=== PATIENT | male | born 1950 | race Two or more races ===

== ENCOUNTER → 2022-07-11 | Outpatient (CLI) | payer OTHER ==
[2022-07-11 09:58] LABS: Basophils # (auto) 0.2 10 ^3/uL (0-0.2); Basophils % (auto) 1.8 % (0.0-2.0); Eosinophils # (auto) 0.4 10 ^3/uL (0-0.8); Eosinophils % (auto) 4.3 % (0.0-7.0); Hematocrit 47.6 % (41.0-53.0); Hemoglobin 16.2 g/dL (13.5-17.5); Lymphocytes % (auto) 29.1 % (10.0-50.0); Mean Corpuscular Volume 94.1 fL (80.0-100.0); Monocytes # (auto) 1.1 10 ^3/uL (0-1.3); Monocytes % (auto) 10.6 % (0.0-12.0); Neutrophils # (auto) 5.6 10 ^3/uL (1.6-8.6); Neutrophils % (auto) 54.2 % (37.0-80.0); Nucleated Red Blood Cells % 0.1 %; Red Blood Cells 5.05 10^6/uL (4.5-5.90); Red Cell Distribution Width 13.3 % (11.8-14.3); White Blood Cell 10.4 10^3/uL (4.4-10.8)
[2022-07-11 10:23] LABS: Urine Bacteria NONE SEEN /hpf (None Seen); Urine Blood Negative /uL (Negative); Urine WBC <1 /hpf (0 - 3)
[2022-07-11 13:35] LABS: Potassium 4.1 mmol/L (3.5-5.1)
[2022-07-11 14:16] LABS: Albumin 3.5 g/dL (3.4-5.0); BUN/Creatinine Ratio 14.1 (10.0-20.0); Bilirubin, Total 0.4 mg/dL (0.2-1.0); Calcium 9.4 mg/dL (8.5-10.1); Magnesium 2.3 mg/dL (1.6-2.6); Uric Acid 4.4 mg/dL (3.5-7.2)
== END | disposition home or self-care (01) ==
LOC: LAB 09:26
PROVIDERS: ATTEND Nurse Practitioner Family
DX: I10 Essential (primary) hypertension (principal); E11.69 Type 2 diabetes mellitus with other specified complication; E78.5 Hyperlipidemia, unspecified; M47.16 Other spondylosis with myelopathy, lumbar region; G89.29 Other chronic pain; M54.51 Vertebrogenic low back pain; J44.9 Chronic obstructive pulmonary disease, unspecified; M50.30 Other cervical disc degeneration, unspecified cervical region; M79.604 Pain in right leg; M79.605 Pain in left leg
CPT/HCPCS: 36415; 80053; 80061; 81001; 82306; 82607; 83036; 83735; 84443; 84550; 85025; 87086

== ENCOUNTER → 2023-01-18 | Outpatient (CLI) | payer OTHER ==
[2023-01-18 08:20] LABS: Urine WBC None Seen /hpf (0 - 3)
[2023-01-18 08:47] LABS: Urine Bacteria NONE SEEN /hpf (None Seen); Urine Blood Negative /uL (Negative); Urine Clarity Clear (Clear); Urine Color Straw (Yellow); Urine Protein, UAD Negative (Negative); Urine Specific Gravity 1.008 (1.001-1.035); Urine Urobilinogen Normal (Negative); Urine pH 7.5 (5.0-8.0)
[2023-01-18 09:01] LABS: Alanine Aminotransferase 27 U/L (7-40); Albumin 4.7 g/dL (3.2-4.8); Alkaline Phosphatase 80 U/L (46-116); Anion Gap 4 (5-15); Aspartate Aminotransferase 16 U/L (13-40); BUN/Creatinine Ratio 8.8 (10.0-20.0); Bilirubin, Total 0.4 mg/dL (0.2-1.0); Blood Urea Nitrogen 8 mg/dL (9-23); Calcium 9.8 mg/dL (8.5-10.1); Carbon Dioxide 28 mmol/L (20-30); Chloride 105 mmol/L (98-107); Cholesterol 161 mg/dL (< 200); Glucose 142 mg/dL (74-106); HDL Cholesterol 44 mg/dL (40-59); LDL Cholesterol 99 mg/dL (< 100); Potassium 4.3 mmol/L (3.5-5.1); Sodium 137 mmol/L (136-145); Total Protein 7.9 g/dL (5.7-8.2); Triglycerides 154 mg/dL (< 150)
[2023-01-18 09:05] LABS: Folate (Folic Acid) 15.28 ng/mL (>5.38)
[2023-01-18 09:30] LABS: Uric Acid 5.5 mg/dL (3.7-9.2)
== END | disposition home or self-care (01) ==
LOC: LAB 07:59
PROVIDERS: ATTEND Internal Medicine
DX: E61.2 Magnesium deficiency (principal); E79.0 Hyperuricemia without signs of inflammatory arthritis and tophaceous disease; R82.998 Other abnormal findings in urine; R94.6 Abnormal results of thyroid function studies; E55.9 Vitamin D deficiency, unspecified; R82.79 Other abnormal findings on microbiological examination of urine; D51.9 Vitamin B12 deficiency anemia, unspecified; R68.89 Other general symptoms and signs; E78.49 Other hyperlipidemia; R73.09 Other abnormal glucose
CPT/HCPCS: 36415; 80053; 80061; 81001; 82306; 82607; 82746; 83036; 83735; 84443; 84550; 87086

== ENCOUNTER → 2023-04-18 | Outpatient (CLI) | payer OTHER ==
[2023-04-18 09:01] LABS: Urine Epithelial Cast None Seen /hpf (<5)
[2023-04-18 09:14] LABS: Basophils # (auto) 0.1 10 ^3/uL (0-0.2); Basophils % (auto) 1.1 % (0.0-2.0); Eosinophils # (auto) 0.3 10 ^3/uL (0-0.8); Eosinophils % (auto) 2.5 % (0.0-7.0); Hematocrit 48.7 % (41.0-53.0); Hemoglobin 15.9 g/dL (13.5-17.5); Lymphocytes # (auto) 3.6 10 ^3/uL (0.4-5.4); Lymphocytes % (auto) 31.5 % (10.0-50.0); Mean Corpuscular Hemoglobin 32.1 pg (28.0-32.0); Mean Corpuscular Hgb Conc. 32.8 g/dL (32.0-36.0); Mean Corpuscular Volume 98.1 fL (80.0-100.0); Monocytes # (auto) 0.9 10 ^3/uL (0-1.3); Monocytes % (auto) 8.1 % (0.0-12.0); Neutrophils # (auto) 6.5 10 ^3/uL (1.6-8.6); Neutrophils % (auto) 56.8 % (37.0-80.0); Nucleated Red Blood Cells % 0.1 %; Red Blood Cells 4.96 10^6/uL (4.5-5.90); Red Cell Distribution Width 13.2 % (11.8-14.3); White Blood Cell 11.5 10^3/uL (4.4-10.8)
[2023-04-18 09:37] LABS: Urine Bacteria NONE SEEN /hpf (None Seen); Urine Blood Negative /uL (Negative); Urine Clarity Clear (Clear); Urine Color Yellow (Yellow); Urine Mucus FEW (None Seen); Urine Protein, UAD Negative (Negative); Urine Specific Gravity 1.017 (1.001-1.035); Urine Urobilinogen Normal (Negative); Urine WBC <1 /hpf (0 - 3)
[2023-04-18 09:41] LABS: Alanine Aminotransferase 27 U/L (7-40); Albumin 4.6 g/dL (3.2-4.8); Alkaline Phosphatase 84 U/L (46-116); Anion Gap 5 (5-15); Aspartate Aminotransferase 20 U/L (13-40); BUN/Creatinine Ratio 11.6 (10.0-20.0); Bilirubin, Total 0.6 mg/dL (0.2-1.0); Blood Urea Nitrogen 11 mg/dL (9-23); Calcium 9.7 mg/dL (8.5-10.1); Carbon Dioxide 28 mmol/L (20-30); Chloride 105 mmol/L (98-107); Cholesterol 163 mg/dL (< 200); Glucose 147 mg/dL (74-106); HDL Cholesterol 39 mg/dL (40-59); LDL Cholesterol 110 mg/dL (< 100); Potassium 4.5 mmol/L (3.5-5.1); Sodium 138 mmol/L (136-145); Total Protein 7.8 g/dL (5.7-8.2); Triglycerides 116 mg/dL (< 150)
[2023-04-18 10:25] LABS: Uric Acid 4.8 mg/dL (3.7-9.2)
[2023-04-18 10:26] LABS: Magnesium 2.1 mg/dL (1.6-2.6)
[2023-04-18 11:13] LABS: Folate (Folic Acid) 19.66 ng/mL (>5.38)
== END | disposition home or self-care (01) ==
LOC: LAB 08:45
PROVIDERS: ATTEND Internal Medicine
DX: E61.2 Magnesium deficiency (principal); E79.0 Hyperuricemia without signs of inflammatory arthritis and tophaceous disease; R82.998 Other abnormal findings in urine; R94.6 Abnormal results of thyroid function studies; E55.9 Vitamin D deficiency, unspecified; R82.79 Other abnormal findings on microbiological examination of urine; D51.9 Vitamin B12 deficiency anemia, unspecified; R78.89 Finding of other specified substances, not normally found in blood; E78.49 Other hyperlipidemia; R68.89 Other general symptoms and signs; R73.09 Other abnormal glucose
CPT/HCPCS: 36415; 80053; 80061; 81001; 82306; 82607; 82746; 83036; 83735; 84443; 84550; 85025; 87086

== ENCOUNTER → 2023-07-17 | Outpatient (CLI) | payer OTHER ==
[2023-07-17 08:26] LABS: Urine Bacteria None Seen /hpf (None Seen)
[2023-07-17 08:49] LABS: Basophils # (auto) 0.1 10 ^3/uL (0-0.2); Basophils % (auto) 1.4 % (0.0-2.0); Eosinophils # (auto) 0.3 10 ^3/uL (0-0.8); Eosinophils % (auto) 3.2 % (0.0-7.0); Hematocrit 47.9 % (41.0-53.0); Lymphocytes # (auto) 4.3 10 ^3/uL (0.4-5.4); Lymphocytes % (auto) 44.5 % (10.0-50.0); Mean Corpuscular Hemoglobin 32.3 pg (28.0-32.0); Mean Corpuscular Hgb Conc. 33.5 g/dL (32.0-36.0); Mean Corpuscular Volume 96.5 fL (80.0-100.0); Monocytes % (auto) 10.8 % (0.0-12.0); Neutrophils # (auto) 3.9 10 ^3/uL (1.6-8.6); Neutrophils % (auto) 40.1 % (37.0-80.0); Nucleated Red Blood Cells % 0.1 %; Red Blood Cells 4.96 10^6/uL (4.5-5.90); Red Cell Distribution Width 13.7 % (11.8-14.3); Urine Blood Negative /uL (Negative); Urine Clarity Clear (Clear); Urine Color Light-Yellow (Yellow); Urine Mucus FEW (None Seen); Urine Protein, UAD Negative (Negative); Urine Specific Gravity 1.015 (1.001-1.035); Urine Urobilinogen Normal (Negative); Urine WBC <1 /hpf (0 - 3); White Blood Cell 9.7 10^3/uL (4.4-10.8)
[2023-07-17 09:11] LABS: Alanine Aminotransferase 36 U/L (7-40); Alkaline Phosphatase 85 U/L (46-116); Anion Gap 7 (5-15); BUN/Creatinine Ratio 10.8 (10.0-20.0); Blood Urea Nitrogen 10 mg/dL (9-23); Carbon Dioxide 26 mmol/L (20-30); Chloride 105 mmol/L (98-107); Glucose 110 mg/dL (74-106); Potassium 4.4 mmol/L (3.5-5.1); Sodium 138 mmol/L (136-145); Triglycerides 76 mg/dL (< 150)
[2023-07-17 09:12] LABS: LDL Cholesterol 111 mg/dL (< 100)
[2023-07-17 09:13] LABS: Albumin 4.5 g/dL (3.2-4.8); Aspartate Aminotransferase 32 U/L (13-40); Cholesterol 162 mg/dL (< 200); HDL Cholesterol 45 mg/dL (40-59)
[2023-07-17 09:14] LABS: Bilirubin, Total 0.6 mg/dL (0.2-1.0); Total Protein 7.6 g/dL (5.7-8.2)
[2023-07-17 10:18] LABS: Uric Acid 5.8 mg/dL (3.7-9.2)
[2023-07-17 10:19] LABS: Magnesium 2.1 mg/dL (1.6-2.6)
[2023-07-17 10:22] LABS: Folate (Folic Acid) 16.95 ng/mL (>5.38)
== END | disposition home or self-care (01) ==
LOC: LAB 08:13
PROVIDERS: ATTEND Internal Medicine
DX: E61.2 Magnesium deficiency (principal); E79.0 Hyperuricemia without signs of inflammatory arthritis and tophaceous disease; R78.89 Finding of other specified substances, not normally found in blood; E78.9 Disorder of lipoprotein metabolism, unspecified; R68.89 Other general symptoms and signs; R73.09 Other abnormal glucose; E85.9 Amyloidosis, unspecified; R82.90 Unspecified abnormal findings in urine; D51.9 Vitamin B12 deficiency anemia, unspecified; R82.79 Other abnormal findings on microbiological examination of urine; R82.991 Hypocitraturia; E55.9 Vitamin D deficiency, unspecified
CPT/HCPCS: 36415; 80053; 80061; 81001; 82306; 82607; 82746; 83036; 83735; 84443; 84550; 85025; 87086

== ENCOUNTER → 2023-10-17 | Outpatient (CLI) | payer OTHER ==
[2023-10-17 07:45] LABS: Urine Bacteria None Seen /hpf (None Seen); Urine WBC None Seen /hpf (0 - 3)
[2023-10-17 07:52] LABS: Basophils # (auto) 0.1 10 ^3/uL (0-0.2); Basophils % (auto) 1.1 % (0.0-2.0); Eosinophils # (auto) 0.3 10 ^3/uL (0-0.8); Eosinophils % (auto) 2.9 % (0.0-7.0); Hematocrit 47.1 % (41.0-53.0); Hemoglobin 15.9 g/dL (13.5-17.5); Lymphocytes # (auto) 4.1 10 ^3/uL (0.4-5.4); Lymphocytes % (auto) 38.9 % (10.0-50.0); Mean Corpuscular Hgb Conc. 33.8 g/dL (32.0-36.0); Mean Corpuscular Volume 97.5 fL (80.0-100.0); Monocytes # (auto) 0.8 10 ^3/uL (0-1.3); Monocytes % (auto) 7.9 % (0.0-12.0); Neutrophils # (auto) 5.2 10 ^3/uL (1.6-8.6); Neutrophils % (auto) 49.2 % (37.0-80.0); Red Blood Cells 4.83 10^6/uL (4.5-5.90); Red Cell Distribution Width 13.6 % (11.8-14.3); White Blood Cell 10.6 10^3/uL (4.4-10.8)
[2023-10-17 07:57] LABS: Urine Blood Negative /uL (Negative); Urine Clarity Clear (Clear); Urine Color Colorless (Yellow); Urine Protein, UAD Negative (Negative); Urine Specific Gravity 1.012 (1.001-1.035); Urine Urobilinogen Normal (Negative)
[2023-10-17 08:21] LABS: Alanine Aminotransferase 34 U/L (7-40); Albumin 4.2 g/dL (3.2-4.8); Alkaline Phosphatase 72 U/L (46-116); Anion Gap 6 (5-15); Aspartate Aminotransferase 15 U/L (13-40); BUN/Creatinine Ratio 12.7 (10.0-20.0); Bilirubin, Total 0.4 mg/dL (0.2-1.0); Blood Urea Nitrogen 15 mg/dL (9-23); Calcium 9.5 mg/dL (8.7-10.4); Carbon Dioxide 25 mmol/L (20-30); Chloride 105 mmol/L (98-107); Cholesterol 159 mg/dL (< 200); Glucose 162 mg/dL (74-106); HDL Cholesterol 49 mg/dL (40-59); LDL Cholesterol 102 mg/dL (< 100); Magnesium 1.9 mg/dL (1.6-2.6); Potassium 4.6 mmol/L (3.5-5.1); Sodium 136 mmol/L (136-145); Triglycerides 122 mg/dL (< 150)
[2023-10-17 08:46] LABS: Uric Acid 5.8 mg/dL (3.7-9.2)
[2023-10-17 08:59] LABS: Folate (Folic Acid) 8.62 ng/mL (>5.38)
== END | disposition home or self-care (01) ==
LOC: LAB 07:28
PROVIDERS: ATTEND Internal Medicine
DX: R79.89 Other specified abnormal findings of blood chemistry (principal); R73.09 Other abnormal glucose; E78.5 Hyperlipidemia, unspecified; E61.2 Magnesium deficiency
CPT/HCPCS: 36415; 80053; 80061; 81001; 82306; 82607; 82746; 83036; 83735; 84443; 84550; 85025; 87086; 87088; 87186

== ENCOUNTER → 2023-11-07 | Outpatient (CLI) | payer OTHER ==
[2023-11-07 08:37] LABS: Creatinine, Urine 38.84 mg/dL (30.0-125.0)
[2023-11-07 08:39] LABS: Micro Albumin < 3.0 mg/L (<30.0)
[2023-11-07 08:47] LABS: Anion Gap 4 (5-15); Carbon Dioxide 30 mmol/L (20-30); Chloride 103 mmol/L (98-107); Potassium 4.4 mmol/L (3.5-5.1); Sodium 137 mmol/L (136-145)
[2023-11-07 08:48] LABS: Calcium 9.9 mg/dL (8.7-10.4)
[2023-11-07 08:51] LABS: Blood Urea Nitrogen 10 mg/dL (9-23)
[2023-11-07 08:53] LABS: BUN/Creatinine Ratio 10.2 (10.0-20.0); Glucose 180 mg/dL (74-106)
== END | disposition home or self-care (01) ==
LOC: LAB 07:45
PROVIDERS: ATTEND Internal Medicine
DX: E11.9 Type 2 diabetes mellitus without complications (principal)
CPT/HCPCS: 36415; 80048; 82043; 82570

== ENCOUNTER 2024-01-16 12:43 | Emergency (ER) | payer OTHER ==
[~2024-01-16] VITALS: Ht 180.3 cm; Wt 90.0 kg
[2024-01-16] MEDS: SODIUM CHLORIDE 0.9% 1,000 ML IVB ONE (13:23)
[2024-01-16 13:54] LABS: Basophils # (auto) 0.1 10 ^3/uL (0-0.2); Basophils % (auto) 0.6 % (0.0-2.0); Eosinophils # (auto) 0.1 10 ^3/uL (0-0.8); Eosinophils % (auto) 0.8 % (0.0-7.0); Hematocrit 48.3 % (41.0-53.0); Hemoglobin 16.4 g/dL (13.5-17.5); Lymphocytes # (auto) 1.9 10 ^3/uL (0.4-5.4); Lymphocytes % (auto) 13.2 % (10.0-50.0); Mean Corpuscular Hemoglobin 33.4 pg (28.0-32.0); Mean Corpuscular Hgb Conc. 34.1 g/dL (32.0-36.0); Monocytes # (auto) 1.1 10 ^3/uL (0-1.3); Monocytes % (auto) 7.8 % (0.0-12.0); Neutrophils # (auto) 10.9 10 ^3/uL (1.6-8.6); Neutrophils % (auto) 77.6 % (37.0-80.0); Nucleated Red Blood Cells % 0.1 %; Platelet Count (auto) 335 10^3/uL (140-450); Red Blood Cells 4.93 10^6/uL (4.5-5.90); Red Cell Distribution Width 13.6 % (11.8-14.3); White Blood Cell 14.1 10^3/uL (4.4-10.8)
[2024-01-16 13:57] LABS: Chloride 101 mmol/L (98-107); Potassium 3.9 mmol/L (3.5-5.1); Sodium 136 mmol/L (136-145)
[2024-01-16 13:58] LABS: Anion Gap 12 (5-15); Carbon Dioxide 23 mmol/L (20-31)
[2024-01-16 14:03] LABS: BUN/Creatinine Ratio 10.1 (10.0-20.0); Blood Urea Nitrogen 11 mg/dL (9-23); Glucose 128 mg/dL (74-106)
[2024-01-16] MEDS: THIAMINE 100mg/ml INJ (200mg/2ml VIAL) IV ONE (14:58)
[2024-01-16 15:29] VITALS: BP 141/62; PULSE 80; RESP 20; TEMP 98.2; O2SAT 95
== END 2024-01-16 16:08 | disposition home or self-care (01) ==
LOC: EDBD 12:43 → ER 12:43
DX: R55 Syncope and collapse (principal); F10.10 Alcohol abuse, uncomplicated
CPT/HCPCS: 36415; 70450; 80048; 80320; 84484; 85025; 93005; 96361; 96374; 99285; J3411; J7030

== ENCOUNTER → 2024-02-04 | Outpatient (CLI) | payer BC ==
[2024-02-04 09:14] LABS: Urine Bacteria None Seen /hpf (None Seen); Urine WBC None Seen /hpf (0 - 3)
[2024-02-04 09:20] LABS: Basophils # (auto) 0.2 10 ^3/uL (0-0.2); Basophils % (auto) 1.9 % (0.0-2.0); Eosinophils # (auto) 0.2 10 ^3/uL (0-0.8); Eosinophils % (auto) 2.4 % (0.0-7.0); Hematocrit 51.3 % (41.0-53.0); Lymphocytes # (auto) 3.9 10 ^3/uL (0.4-5.4); Lymphocytes % (auto) 38.8 % (10.0-50.0); Mean Corpuscular Hemoglobin 32.5 pg (28.0-32.0); Mean Corpuscular Hgb Conc. 33.2 g/dL (32.0-36.0); Mean Corpuscular Volume 98.1 fL (80.0-100.0); Monocytes # (auto) 0.8 10 ^3/uL (0-1.3); Monocytes % (auto) 7.7 % (0.0-12.0); Neutrophils # (auto) 4.9 10 ^3/uL (1.6-8.6); Neutrophils % (auto) 49.2 % (37.0-80.0); Nucleated Red Blood Cells % 0.1 %; Platelet Count (auto) 350 10^3/uL (140-450); Red Blood Cells 5.23 10^6/uL (4.5-5.90); Red Cell Distribution Width 13.5 % (11.8-14.3); White Blood Cell 10.1 10^3/uL (4.4-10.8)
[2024-02-04 09:22] LABS: Urine Blood Negative /uL (Negative); Urine Clarity Clear (Clear); Urine Color Colorless (Yellow); Urine Protein, UAD Negative (Negative); Urine Specific Gravity 1.009 (1.001-1.035); Urine Urobilinogen Normal (Negative); Urine pH 6.5 (5.0-9.0)
[2024-02-04 09:44] LABS: Alanine Aminotransferase 34 U/L (7-40); Albumin 4.5 g/dL (3.2-4.8); Alkaline Phosphatase 80 U/L (46-116); Anion Gap 4 (5-15); Aspartate Aminotransferase 18 U/L (13-40); BUN/Creatinine Ratio 9.4 (10.0-20.0); Blood Urea Nitrogen 9 mg/dL (9-23); Calcium 10.4 mg/dL (8.7-10.4); Carbon Dioxide 30 mmol/L (20-31); Chloride 105 mmol/L (98-107); Cholesterol 169 mg/dL (< 200); Glucose 146 mg/dL (74-106); HDL Cholesterol 42 mg/dL (40-59); LDL Cholesterol 110 mg/dL (< 100); Potassium 4.8 mmol/L (3.5-5.1); Sodium 139 mmol/L (136-145); Triglycerides 150 mg/dL (< 150)
[2024-02-04 09:45] LABS: Bilirubin, Total 0.6 mg/dL (0.2-1.0); Total Protein 7.7 g/dL (5.7-8.2)
[2024-02-04 11:43] LABS: Uric Acid 5.9 mg/dL (3.7-9.2)
[2024-02-04 12:13] LABS: Prostate Specific Antigen 4.23 ng/mL (0.0-4.0)
[2024-02-04 12:18] LABS: Folate (Folic Acid) 15.85 ng/mL (>5.38)
[2024-02-05 08:06] LABS: PSA Free 1.18 ng/mL; Prostate Specific Antigen 5.4 ng/mL (0.0-4.0)
== END | disposition home or self-care (01) ==
LOC: LAB 08:40
PROVIDERS: ATTEND Internal Medicine
DX: E61.2 Magnesium deficiency (principal); E79.0 Hyperuricemia without signs of inflammatory arthritis and tophaceous disease; E55.9 Vitamin D deficiency, unspecified; R68.89 Other general symptoms and signs; D51.9 Vitamin B12 deficiency anemia, unspecified; R82.90 Unspecified abnormal findings in urine; R94.6 Abnormal results of thyroid function studies; R73.09 Other abnormal glucose; E78.49 Other hyperlipidemia; R97.20 Elevated prostate specific antigen [PSA]
CPT/HCPCS: 36415; 80053; 80061; 81001; 82306; 82607; 82746; 83036; 84153; 84154; 84443; 84550; 85025; 87086

== ENCOUNTER → 2024-05-06 | Outpatient (CLI) | payer BC ==
[2024-05-06 09:03] LABS: Basophils # (auto) 0.1 10 ^3/uL (0-0.2); Basophils % (auto) 0.8 % (0.0-2.0); Eosinophils # (auto) 0.2 10 ^3/uL (0-0.8); Eosinophils % (auto) 2.2 % (0.0-7.0); Hematocrit 50.5 % (41.0-53.0); Hemoglobin 17.2 g/dL (13.5-17.5); Lymphocytes % (auto) 28.3 % (10.0-50.0); Monocytes # (auto) 0.9 10 ^3/uL (0-1.3); Monocytes % (auto) 8.6 % (0.0-12.0); Neutrophils # (auto) 6.4 10 ^3/uL (1.6-8.6); Neutrophils % (auto) 60.1 % (37.0-80.0); Nucleated Red Blood Cells % 0.1 %; Platelet Count (auto) 349 10^3/uL (140-450); Red Cell Distribution Width 13.4 % (11.8-14.3); White Blood Cell 10.6 10^3/uL (4.4-10.8)
[2024-05-06 11:55] LABS: Alanine Aminotransferase 29 U/L (7-40); Anion Gap 7 (5-15); Carbon Dioxide 28 mmol/L (20-31); Chloride 99 mmol/L (98-107); Potassium 4.5 mmol/L (3.5-5.1)
[2024-05-06 11:57] LABS: BUN/Creatinine Ratio 11.5 (10.0-20.0); Blood Urea Nitrogen 10 mg/dL (9-23)
[2024-05-06 11:59] LABS: Albumin 4.8 g/dL (3.2-4.8); Aspartate Aminotransferase 19 U/L (13-40); Bilirubin, Total 0.7 mg/dL (0.2-1.0); Total Protein 7.7 g/dL (5.7-8.2)
[2024-05-06 12:03] LABS: Calcium 10.6 mg/dL (8.7-10.4); Glucose 125 mg/dL (74-106); Sodium 134 mmol/L (136-145)
[2024-05-06 12:36] LABS: Alkaline Phosphatase 79 U/L (46-116)
[2024-05-07 12:18] LABS: Triglycerides 148 mg/dL (< 150)
[2024-05-07 12:19] LABS: HDL Cholesterol 48 mg/dL (40-59)
[2024-05-07 12:25] LABS: Cholesterol 233 mg/dL (< 200); LDL Cholesterol 185 mg/dL (< 100)
== END | disposition home or self-care (01) ==
LOC: LAB 08:20
PROVIDERS: ATTEND Nurse Practitioner Family
DX: E55.9 Vitamin D deficiency, unspecified (principal); E79.0 Hyperuricemia without signs of inflammatory arthritis and tophaceous disease; R94.6 Abnormal results of thyroid function studies; R73.09 Other abnormal glucose; R82.998 Other abnormal findings in urine; R68.89 Other general symptoms and signs
CPT/HCPCS: 36415; 80053; 80061; 83036; 84153; 85025; 87086

== ENCOUNTER → 2024-06-24 | Outpatient (CLI) | payer BC ==
[2024-06-24 08:25] LABS: Urine Bacteria None Seen /hpf (None Seen)
[2024-06-24 08:32] LABS: Basophils # (auto) 0.2 10 ^3/uL (0-0.2); Basophils % (auto) 1.4 % (0.0-2.0); Eosinophils # (auto) 0.2 10 ^3/uL (0-0.8); Eosinophils % (auto) 2.1 % (0.0-7.0); Hematocrit 46.3 % (41.0-53.0); Lymphocytes # (auto) 3.7 10 ^3/uL (0.4-5.4); Lymphocytes % (auto) 33.4 % (10.0-50.0); Mean Corpuscular Hemoglobin 33.5 pg (28.0-32.0); Mean Corpuscular Hgb Conc. 34.7 g/dL (32.0-36.0); Mean Corpuscular Volume 96.8 fL (80.0-100.0); Monocytes # (auto) 0.9 10 ^3/uL (0-1.3); Monocytes % (auto) 8.4 % (0.0-12.0); Neutrophils # (auto) 6.2 10 ^3/uL (1.6-8.6); Neutrophils % (auto) 54.7 % (37.0-80.0); Platelet Count (auto) 368 10^3/uL (140-450); Red Blood Cells 4.78 10^6/uL (4.5-5.90); Red Cell Distribution Width 13.2 % (11.8-14.3); White Blood Cell 11.2 10^3/uL (4.4-10.8)
[2024-06-24 08:33] LABS: Urine Blood Negative /uL (Negative); Urine Clarity Clear (Clear); Urine Protein, UAD Negative (Negative); Urine Specific Gravity 1.009 (1.001-1.035); Urine Squamous Epithelial Cell None Seen /hpf (<5); Urine Urobilinogen Normal (Negative); Urine WBC < 1 /HPF (0-3); Urine pH 7.5 (5.0-9.0)
[2024-06-24 08:35] LABS: Urine Color STRAW (Yellow)
[2024-06-24 08:51] LABS: Alanine Aminotransferase 30 U/L (7-40); Albumin 4.7 g/dL (3.2-4.8); Alkaline Phosphatase 84 U/L (46-116); Aspartate Aminotransferase 19 U/L (13-40); BUN/Creatinine Ratio 9.1 (10.0-20.0); Blood Urea Nitrogen 9 mg/dL (9-23); Calcium 10.3 mg/dL (8.7-10.4); Carbon Dioxide 30 mmol/L (20-31); LDL Cholesterol 93 mg/dL (< 100); Potassium 4.9 mmol/L (3.5-5.1); Total Protein 7.8 g/dL (5.7-8.2); Triglycerides 112 mg/dL (< 150)
[2024-06-24 08:52] LABS: Bilirubin, Total 0.7 mg/dL (0.2-1.0); Cholesterol 157 mg/dL (< 200); HDL Cholesterol 46 mg/dL (40-59)
[2024-06-24 09:06] LABS: Glucose 148 mg/dL (74-106); Sodium 135 mmol/L (136-145)
[2024-06-24 09:15] LABS: Anion Gap 3 (5-15); Chloride 102 mmol/L (98-107)
[2024-06-24 09:21] LABS: Uric Acid 6.4 mg/dL (3.7-9.2)
== END | disposition home or self-care (01) ==
LOC: LAB 08:13
PROVIDERS: ATTEND Student in an Organized Health Care Education/Training Program
DX: E61.2 Magnesium deficiency (principal); E55.9 Vitamin D deficiency, unspecified; D51.9 Vitamin B12 deficiency anemia, unspecified; E78.49 Other hyperlipidemia; E79.0 Hyperuricemia without signs of inflammatory arthritis and tophaceous disease; R94.6 Abnormal results of thyroid function studies; R82.79 Other abnormal findings on microbiological examination of urine; R82.998 Other abnormal findings in urine; R73.09 Other abnormal glucose; R68.89 Other general symptoms and signs; R82.90 Unspecified abnormal findings in urine
CPT/HCPCS: 36415; 80053; 80061; 81001; 82306; 82746; 83036; 84443; 84550; 85025; 87086